=== PATIENT | female | born 1990 | race Two or more races ===

== ENCOUNTER → 2020-03-26 | Outpatient (CLI) | payer OTHER | END | disposition home or self-care (01) | LOC: PRENATAL 14:07 | PROVIDERS: ATTEND Obstetrics & Gynecology Maternal & Fetal Medicine | DX: O35.0XX1 Maternal care for (suspected) central nervous system malformation in fetus, fetus 1 (principal); O35.3XX1 Maternal care for (suspected) damage to fetus from viral disease in mother, fetus 1; O98.512 Other viral diseases complicating pregnancy, second trimester; O99.891 Other specified diseases and conditions complicating pregnancy; O99.212 Obesity complicating pregnancy, second trimester; Z36.89 Encounter for other specified antenatal screening; Z3A.22 22 weeks gestation of pregnancy ==

== ENCOUNTER 2020-05-02 13:45 | Inpatient (IN) | payer OTHER ==
[~2020-05-02] VITALS: Ht 162.6 cm; Wt 126.1 kg
[2020-05-02] MEDS ORDERED: ASA81 MG PO (14:40)
[2020-05-02] MEDS ORDERED: PRENATAL TABLE1 EAC1 PO (14:40)
[2020-05-02] MEDS ORDERED: FAMOTIDINE20 MG (15:43)
== END 2020-05-04 10:43 | disposition home or self-care (01) | DRG 833 ==
LOC: LDR 13:45 → OB/GYN 05-03 16:01
PROVIDERS: ADMIT Obstetrics & Gynecology; ATTEND Obstetrics & Gynecology
PROC: 4A1HXFZ Monitoring of Products of Conception, Cardiac Rhythm, External Approach (ICD-10-PCS; principal; 2020-05-02)
DX: O13.2 Gestational [pregnancy-induced] hypertension without significant proteinuria, second trimester (principal); Z3A.27 27 weeks gestation of pregnancy

== ENCOUNTER 2020-07-11 17:08 | Inpatient (IN) | payer OTHER ==
[~2020-07-11] VITALS: Ht 162.6 cm; Wt 127.0 kg
[~2020-07-11 17:08] MED LIST: ASA81 MG PO; FAMOTIDINE20 MG; PRENATAL TABLE1 EAC1 PO
[2020-07-11] MEDS ORDERED: ALDOMET250 MG/5 M PO (17:41)
[2020-07-13] MEDS ORDERED: METHYLDOPA250 MG PO (14:15)
[2020-07-15] MEDS ORDERED: METHYLDOPA500 MG PO (12:20)
[2020-07-15] MEDS ORDERED: IBUPROFEN600 MG PO (12:20)
[2020-07-15] MEDS ORDERED: CODE1TAB37 PO (12:21)
== END 2020-07-15 13:46 | disposition home or self-care (01) | DRG 787 ==
LOC: OB/GYN 17:08 → LDR 17:08 → O/R 07-12 18:59 → OB/GYN 07-12 19:26
PROVIDERS: ADMIT Obstetrics & Gynecology; ATTEND Obstetrics & Gynecology
PROC: 3E0P7VZ Introduction of Hormone into Female Reproductive, Via Natural or Artificial Opening (ICD-10-PCS; 2020-07-11)
PROC: 4A1HXFZ Monitoring of Products of Conception, Cardiac Rhythm, External Approach (ICD-10-PCS; 2020-07-11)
PROC: 10907ZC Drainage of Amniotic Fluid, Therapeutic from Products of Conception, Via Natural or Artificial Opening (ICD-10-PCS; 2020-07-12)
PROC: 3E033VJ Introduction of Other Hormone into Peripheral Vein, Percutaneous Approach (ICD-10-PCS; 2020-07-12)
PROC: 10D00Z1 Extraction of Products of Conception, Low, Open Approach (ICD-10-PCS; principal; 2020-07-12 17:30)
DX: O76 Abnormality in fetal heart rate and rhythm complicating labor and delivery (principal); O10.02 Pre-existing essential hypertension complicating childbirth; Z3A.37 37 weeks gestation of pregnancy; Z37.0 Single live birth; Z20.822 Contact with and (suspected) exposure to COVID-19